=== PATIENT | female | born 1975 | race Two or more races ===

== ENCOUNTER 2021-03-13 09:15 | Outpatient (CLI) | payer OTHER | END 2021-03-13 09:26 | disposition home or self-care (01) | LOC: SONOGRAMA 09:15 | PROVIDERS: ATTEND Obstetrics & Gynecology | DX: N84.0 Polyp of corpus uteri (principal) ==

== ENCOUNTER 2021-05-02 06:22 | Day surgery (SDC) | payer OTHER | END 2021-05-02 19:25 | disposition home or self-care (01) | LOC: CIR.AMB 06:22 | PROVIDERS: ATTEND Obstetrics & Gynecology | DX: N84.0 Polyp of corpus uteri (principal); Z20.822 Contact with and (suspected) exposure to COVID-19 ==